=== PATIENT | male | born 1940 | race African-American/Black ===

== ENCOUNTER 2022-02-13 09:17 | Inpatient (IN) | payer OTHER, MEDICAID ==
[~2022-02-13] VITALS: Ht 170.2 cm; Wt 82.6 kg
[2022-02-13 09:59] LABS: Basophils # (auto) 0.1 10 ^3/uL (0-0.2); Basophils % (auto) 1.3 % (0.0-2.0); Eosinophils # (auto) 0.2 10 ^3/uL (0-0.8); Eosinophils % (auto) 3.1 % (0.0-7.0); Hematocrit 34.7 % (41.0-53.0); Hemoglobin 11.7 g/dL (13.5-17.5); Mean Corpuscular Hemoglobin 30.9 pg (28.0-32.0); Mean Corpuscular Hgb Conc. 33.6 g/dL (32.0-36.0); Mean Corpuscular Volume 91.8 fL (80.0-100.0); Monocytes # (auto) 0.6 10 ^3/uL (0-1.3); Monocytes % (auto) 7.7 % (0.0-12.0); Neutrophils # (auto) 4.4 10 ^3/uL (1.6-8.6); Neutrophils % (auto) 60.9 % (37.0-80.0); Nucleated Red Blood Cells % 0.1 %; Red Blood Cells 3.78 10^6/uL (4.5-5.90); Red Cell Distribution Width 12.8 % (11.8-14.3); White Blood Cell 7.2 10^3/uL (4.4-10.8)
[2022-02-13 10:16] LABS: Albumin 3.2 g/dL (3.4-5.0); Calcium 8.9 mg/dL (8.5-10.1); Magnesium 3.2 mg/dL (1.6-2.6)
[2022-02-13 10:20] LABS: BUN/Creatinine Ratio 18.1; Bilirubin, Total 0.4 mg/dL (0.2-1.0); Total Protein 6.6 g/dL (6.4-8.2)
[2022-02-13] MEDS ORDERED: NITROGLYCERIN 0.4 MG SL TAB SL PRN (14:45)
[2022-02-13] MEDS ORDERED: MORPHINE SULFATE INJ 2 MG/ml SYRG IV PRN ×2 (14:45→22:45)
[2022-02-13 18:35] VITALS: BP 131/66
[2022-02-13] MEDS ORDERED: hydrALAZINE HCL 20 MG/ML VL IV PRN (22:45)
[2022-02-13] MEDS ORDERED: ACETAMINOPHEN 325 MG TAB PO PRN (22:45)
[2022-02-13] MEDS ORDERED: LORazepam 0.5 MG TAB PO PRN (22:45)
[2022-02-13] MEDS ORDERED: ONDANSETRON HCL 4 MG/2 ML VIAL IV PRN (22:45)
[2022-02-13] MEDS ORDERED: DOCUSATE SOD 100 MG CAP PO PRN (22:45)
[2022-02-13] MEDS ORDERED: HYDROcodone-ACET 5/325MG TAB PO PRN (22:45)
[2022-02-14 03:55] LABS: Magnesium 2.7 mg/dL (1.6-2.6); Phosphorus 3.4 mg/dL (2.5-4.90)
[2022-02-14 03:58] LABS: INR 1.07 (0.9-1.15); Partial Thromboplastin Time 27.6 sec (23.6-33.0)
[2022-02-14 09:00] VITALS: BP 131/66
[2022-02-14] MEDS ORDERED: cefTRIAXone 1GM/50ML D5W 50 ML IV ONE (09:30)
[2022-02-14] MEDS ORDERED: DEXTROSE (50%) 50ML SYRG IV PRN (09:30)
[2022-02-14] MEDS ORDERED: ASPirin 81 mg TAB PO SCH (10:00)
[2022-02-14] MEDS ORDERED: AZITHROMYCIN 500MG/ 250ML 250 ML IV ONE (10:00)
[2022-02-14 12:10] LABS: Basophils # (auto) 0 10 ^3/uL (0-0.2); Basophils % (auto) 0.7 % (0.0-2.0); Eosinophils # (auto) 0.1 10 ^3/uL (0-0.8); Eosinophils % (auto) 1.8 % (0.0-7.0); Hematocrit 31.8 % (41.0-53.0); Hemoglobin 10.9 g/dL (13.5-17.5); Lymphocytes # (auto) 0.9 10 ^3/uL (0.4-5.4); Mean Corpuscular Hgb Conc. 34.2 g/dL (32.0-36.0); Mean Corpuscular Volume 90.7 fL (80.0-100.0); Monocytes # (auto) 0.4 10 ^3/uL (0-1.3); Monocytes % (auto) 7.2 % (0.0-12.0); Neutrophils # (auto) 4.4 10 ^3/uL (1.6-8.6); Neutrophils % (auto) 75.3 % (37.0-80.0); Nucleated Red Blood Cells % 0.2 %; Red Blood Cells 3.51 10^6/uL (4.5-5.90); Red Cell Distribution Width 12.8 % (11.8-14.3); White Blood Cell 5.9 10^3/uL (4.4-10.8)
[2022-02-14 12:27] LABS: INR 1.1 (0.9-1.15); Partial Thromboplastin Time 27.5 sec (23.6-33.0)
[2022-02-14 12:28] LABS: Calcium 8.6 mg/dL (8.5-10.1); Magnesium 2.8 mg/dL (1.6-2.6); Potassium 4.6 mmol/L (3.5-5.1)
[2022-02-14 12:38] LABS: Albumin 2.9 g/dL (3.4-5.0); Bilirubin, Total 0.3 mg/dL (0.2-1.0); CRP High Sensitivity 0.86 mg/dL (< 0.3); Phosphorus 3.1 mg/dL (2.5-4.90); Total Protein 6.1 g/dL (6.4-8.2); Uric Acid 8.1 mg/dL (3.5-7.2)
[2022-02-14] MEDS: ENOXAPARIN SOD 40 MG/0.4 ML SYRINGE SC SCH (12:41)
[2022-02-14 13:00] VITALS: BP 134/72
[2022-02-14] MEDS: InsuLIN REG 1unit/0.01ml Soln (100units/ml) SC SCH ×2 (13:24→17:00)
[2022-02-14] MEDS: ACCU-CHEK COMFORT CURVE STRIP VI SCH ×3 (13:25→21:48)
[2022-02-14] MEDS: SODIUM CHLORIDE 0.9% 1,000 ML IV SCH (13:26)
[2022-02-14 17:00] VITALS: BP 130/65
[2022-02-14 20:16] VITALS: BP 130/65
[2022-02-14] MEDS: ATORVASTATIN 20 MG TAB PO SCH (21:47)
[2022-02-14 22:00] VITALS: BP 128/67
[2022-02-14] MEDS ORDERED: InsuLIN REG 1unit/0.01ml Soln (100units/ml) SC SCH (22:00)
[2022-02-15] VITALS (7 sets, daily range): BP systolic 92–127; BP diastolic 43–83
[2022-02-15] MEDS: SODIUM CHLORIDE 0.9% 1,000 ML IV SCH ×2 (04:05→21:24)
[2022-02-15 04:49] LABS: Urine Bacteria NONE SEEN /hpf (None Seen); Urine Blood Negative /uL (Negative); Urine Hyaline Cast FEW /lpf (0 - 2); Urine Specific Gravity 1.011 (1.001-1.035); Urine WBC <1 /hpf (0 - 3)
[2022-02-15 04:57] LABS: Alcohol, Urine < 3.0 mg/dL (0-10); Amphetamine Screen, Urine NEGATIVE (NEGATIVE); Barbiturate Scree,Urine NEGATIVE (NEGATIVE); Benzodiazephine Screen, Urine NEGATIVE (NEGATIVE); Cannabinoid Screen, Urine NEGATIVE (NEGATIVE); Cocaine Screen, Urine NEGATIVE (NEGATIVE); Opiate Scree,Urine NEGATIVE (NEGATIVE); Phencyclidine Screen, Urine NEGATIVE (NEGATIVE)
[2022-02-15] MEDS: ACCU-CHEK COMFORT CURVE STRIP VI SCH ×4 (05:41→21:31)
[2022-02-15] MEDS: InsuLIN REG 1unit/0.01ml Soln (100units/ml) SC SCH ×4 (05:41→21:30)
[2022-02-15 08:02] LABS: Basophils # (auto) 0 10 ^3/uL (0-0.2); Basophils % (auto) 0.8 % (0.0-2.0); Eosinophils # (auto) 0.2 10 ^3/uL (0-0.8); Eosinophils % (auto) 3.2 % (0.0-7.0); Hematocrit 31.2 % (41.0-53.0); Hemoglobin 10.6 g/dL (13.5-17.5); Lymphocytes # (auto) 1.2 10 ^3/uL (0.4-5.4); Lymphocytes % (auto) 20.2 % (10.0-50.0); Mean Corpuscular Hemoglobin 30.7 pg (28.0-32.0); Mean Corpuscular Hgb Conc. 33.9 g/dL (32.0-36.0); Mean Corpuscular Volume 90.4 fL (80.0-100.0); Monocytes # (auto) 0.6 10 ^3/uL (0-1.3); Neutrophils # (auto) 4.1 10 ^3/uL (1.6-8.6); Neutrophils % (auto) 66.8 % (37.0-80.0); Nucleated Red Blood Cells % 0.1 %; Red Blood Cells 3.46 10^6/uL (4.5-5.90); Red Cell Distribution Width 13.1 % (11.8-14.3); White Blood Cell 6.1 10^3/uL (4.4-10.8)
[2022-02-15 08:18] LABS: BUN/Creatinine Ratio 18.7; Potassium 4.6 mmol/L (3.5-5.1)
[2022-02-15] MEDS: cefTRIAXone 1GM/50ML D5W 50 ML IV SCH (09:40)
[2022-02-15] MEDS: ENOXAPARIN SOD 40 MG/0.4 ML SYRINGE SC SCH (09:41)
[2022-02-15] MEDS: AZITHROMYCIN 250 MG TAB PO SCH (09:45)
[2022-02-15] MEDS ORDERED: DEXTROSE (50%) 50ML SYRG IV PRN (09:45)
[2022-02-15] MEDS ORDERED: AZITHROMYCIN 500MG/ 250ML 250 ML IV SCH (10:00)
[2022-02-15] MEDS: ATORVASTATIN 20 MG TAB PO SCH (21:31)
[2022-02-16 04:33] VITALS: BP 130/54
[2022-02-16] MEDS: ACCU-CHEK COMFORT CURVE STRIP VI SCH ×2 (06:30→11:30)
[2022-02-16] MEDS: InsuLIN REG 1unit/0.01ml Soln (100units/ml) SC SCH ×2 (06:33→12:01)
[2022-02-16 06:57] LABS: BUN/Creatinine Ratio 15.3; Calcium 8.9 mg/dL (8.5-10.1); Potassium 4.4 mmol/L (3.5-5.1)
[2022-02-16 08:00] VITALS: BP 129/57
[2022-02-16 09:00] VITALS: BP 129/57
[2022-02-16] MEDS: cefTRIAXone 1GM/50ML D5W 50 ML IV SCH (09:43)
[2022-02-16] MEDS: ENOXAPARIN SOD 40 MG/0.4 ML SYRINGE SC SCH (09:44)
[2022-02-16] MEDS: AZITHROMYCIN 250 MG TAB PO SCH (09:44)
[2022-02-16] MEDS ORDERED: LEVO500T31 PO (10:05)
== END 2022-02-16 12:40 | disposition home or self-care (01) | DRG 73 ==
LOC: ER 09:17 → EDBD 09:17 → TELE 14:41 → TELE-CENTR 02-14 08:49
PROVIDERS: ADMIT Hospitalist; ATTEND Internal Medicine
DX: G90.9 Disorder of the autonomic nervous system, unspecified (principal); N17.0 Acute kidney failure with tubular necrosis; J18.9 Pneumonia, unspecified organism; U07.1 COVID-19; E44.1 Mild protein-calorie malnutrition; E86.0 Dehydration; E11.21 Type 2 diabetes mellitus with diabetic nephropathy; I25.10 Atherosclerotic heart disease of native coronary artery without angina pectoris; J44.9 Chronic obstructive pulmonary disease, unspecified; D64.9 Anemia, unspecified; E11.22 Type 2 diabetes mellitus with diabetic chronic kidney disease; I12.9 Hypertensive chronic kidney disease with stage 1 through stage 4 chronic kidney disease, or unspecified chronic kidney disease; Z20.822 Contact with and (suspected) exposure to COVID-19; E78.5 Hyperlipidemia, unspecified; F17.200 Nicotine dependence, unspecified, uncomplicated; H40.9 Unspecified glaucoma; I27.21 Secondary pulmonary arterial hypertension; R91.1 Solitary pulmonary nodule; N18.9 Chronic kidney disease, unspecified; Z85.118 Personal history of other malignant neoplasm of bronchus and lung; Z86.73 Personal history of transient ischemic attack (TIA), and cerebral infarction without residual deficits; Z95.0 Presence of cardiac pacemaker; Z68.28 Body mass index [BMI] 28.0-28.9, adult
CPT/HCPCS: 36415; 70450; 71045; 78582; 80048; 80053; 80061; 80307; 81001; 82550; 82728; 82962; 83036; 83615; 83735; 83880; 84100; 84443; 84484; 84550; 85025; 85379; 85610; 85652; 85730; 86141; 87040; 87086; 93005; 93306; 93886; 93970; G0378; J0696; J1815